=== PATIENT | male | born 1990 | race African-American/Black ===

== ENCOUNTER 2018-02-20 10:43 | Emergency (ER) | payer OTHER ==
[~2018-02-20] VITALS: Ht 175.3 cm; Wt 63.5 kg
--- NOTE | ~2018-02-20 | EKG ---
[facility] [place] [address] ELECTROCARDIOGRAM REPORT Name: YI FLORES Room #: [facility] FRANCISCO Nuñez#: [id number] Admission: 02/20/18 Attend Phys: Discharge: 02/20/18 Date of : [birth year] Report #: [id number] THIS REPORT FOR: //name// [facility] ED Test Date: 2018-02-20 Test Time: 11:37:27 Pat Name: YI FLORES Department: Room: Gender: Sorter Pricer: ZG : 1990 Requested By: Rubina Albert Order Number: [id number] MD: Preston Desir Measurements Intervals [place] Rate: 83 P: 41 [place]: 178 QRS: 0 QRSD: 82 T: 36 QT: 346 QTc: 407 Interpretive Statements Sinus rhythm RSR' in V1 or V2, probably normal variant ST elev, probable normal early repol pattern No previous ECG available for comparison Electronically Signed On 02-20-2018 17:02:39 CDT by Preston Desir [email or web address] <ELECTRONICALLY SIGNED> By: Preston Desir MD, [facility] 02/20/18 1702 1137 36 Preston Desir MD, FACC /EPI
[2018-02-20] MEDS ORDERED: KEPPRA 500 MG500 M1 PO (10:58)
[2018-02-20 11:21] LABS: URINE BILIRUBIN NEGATIVE (Negative); URINE BLOOD NEGATIVE (Negative); URINE CLARITY CLEAR; URINE COLOR YELLOW; URINE GLUCOSE-RANDOM* NEGATIVE (Negative); URINE KETONES NEGATIVE (Negative); URINE LEUKOCYTES-REFLEX NEGATIVE (Negative); URINE NITRITE-REFLEX NEGATIVE (Negative); URINE PROTEIN (DIPSTICK) NEGATIVE (Negative); URINE SPECIFIC GRAVITY <= 1.005 (1.005-1.035); URINE UROBILINOGEN 0.2 E.U./dl (0.2-1.0)
[2018-02-20 11:25] LABS: ANION GAP 10 mmol/L (7-16); BUN 7 mg/dL (7-18); CALCIUM 9.2 mg/dL (8.5-10.1); CHLORIDE 105 mmol/L (98-107); CO2 20 mmol/L (21-32); CREATININE 1.1 mg/dL (0.7-1.3); GLUCOSE 107 mg/dL (74-106); POTASSIUM 3.8 mmol/L (3.5-5.1); SODIUM 135 mmol/L (136-145)
[2018-02-20 11:29] LABS: ALBUMIN 3.7 g/dL (3.4-5.0); SALICYLATE < 2.8 mg/dL (2.8-20.0); SGOT 56 U/L (15-37); SGPT 39 U/L (30-65); TOTAL BILIRUBIN 0.8 mg/dL (<0.1-1.0); TOTAL PROTEIN 7.5 g/dL (6.4-8.2)
[2018-02-20 11:31] LABS: AMP/METHAMP Negative (Negative); BARBITURATES Negative (Negative); BENZODIAZEPINES Negative (Negative); COCAINE Negative (Negative); METHADONE Negative (Negative); OPIATES Negative (Negative); PCP Negative (Negative)
[2018-02-20 11:56] LABS: ABSOLUTE NEUTROPHILS 4.4 thou/uL (1.4-8.2); BASOPHILS 0.6 % (0.0-2.0); EOSINOPHILS 0.2 % (0.0-3.0); HEMATOCRIT 46.1 % (42.0-52.0); HEMOGLOBIN 15.9 gm/dL (14.0-18.0); LYMPHOCYTES 25.2 % (24.0-44.0); MCH 26.9 pg (26.0-34.0); MCHC 34.6 g/dL (28.0-37.0); MCV 77.7 fL (80.0-100.0); MONOCYTES 10.3 % (1.0-8.0); PLATELET COUNT 262 thou/uL (150-400); POLYS 63.7 % (36.0-66.0); RBC 5.93 mil/uL (4.50-6.00); RDW 14.6 % (10.5-14.5)
[2018-02-20 15:15] VITALS: BP 118/52
== END 2018-02-20 15:15 | disposition home or self-care (01) ==
LOC: ER 10:43
PROVIDERS: Physician Assistant
DX: F29 Unspecified psychosis not due to a substance or known physiological condition (principal); S00.511A Abrasion of lip, initial encounter; R41.82 Altered mental status, unspecified; F10.10 Alcohol abuse, uncomplicated; F12.99 Cannabis use, unspecified with unspecified cannabis-induced disorder; F17.210 Nicotine dependence, cigarettes, uncomplicated; Z88.8 Allergy status to other drugs, medicaments and biological substances; Y90.0 Blood alcohol level of less than 20 mg/100 ml; X58.XXXA Exposure to other specified factors, initial encounter; Y92.89 Other specified places as the place of occurrence of the external cause; Y93.89 Activity, other specified; Y99.8 Other external cause status

== ENCOUNTER 2019-04-16 03:32 | Emergency (ER) | payer OTHER ==
[~2019-04-16] VITALS: Ht 172.7 cm; Wt 72.6 kg
[~2019-04-16 03:32] MED LIST: KEPPRA 500 MG500 M1 PO
[2019-04-16 05:05] LABS: ABSOLUTE NEUTROPHILS 4.7 thou/uL (1.4-8.2); BASOPHILS 0.4 % (0.0-2.0); EOSINOPHILS 0.2 % (0.0-3.0); HEMATOCRIT 45.8 % (42.0-52.0); HEMOGLOBIN 15.5 gm/dL (14.0-18.0); LYMPHOCYTES 22.4 % (24.0-44.0); MCH 26.3 pg (26.0-34.0); MCHC 33.9 g/dL (28.0-37.0); MCV 77.5 fL (80.0-100.0); MONOCYTES 10.3 % (1.0-8.0); PLATELET COUNT 287 thou/uL (150-400); POLYS 66.7 % (36.0-66.0)
[2019-04-16 05:12] LABS: CALCIUM 8.9 mg/dL (8.5-10.1); POTASSIUM 3.4 mmol/L (3.5-5.1)
[2019-04-16 05:15] LABS: AMP/METHAMP Negative (Negative); BARBITURATES Negative (Negative); BENZODIAZEPINES Negative (Negative); COCAINE POSITIVE (Negative); METHADONE Negative (Negative); OPIATES Negative (Negative); PCP Negative (Negative)
[2019-04-16 05:55] VITALS: BP 143/110
== END 2019-04-16 06:19 | disposition home or self-care (01) ==
LOC: ER 03:32
PROVIDERS: Emergency Medicine
DX: F12.10 Cannabis abuse, uncomplicated (principal); F14.10 Cocaine abuse, uncomplicated; F91.9 Conduct disorder, unspecified; F17.210 Nicotine dependence, cigarettes, uncomplicated; Z88.8 Allergy status to other drugs, medicaments and biological substances

== ENCOUNTER 2019-05-28 07:57 | Emergency (ER) | payer OTHER ==
[~2019-05-28] VITALS: Ht 165.1 cm; Wt 74.8 kg
[2019-05-28 09:29] LABS: URINE BILIRUBIN NEGATIVE (Negative); URINE BLOOD TRACE (Negative); URINE CLARITY CLEAR; URINE COLOR YELLOW; URINE GLUCOSE-RANDOM* NEGATIVE (Negative); URINE KETONES NEGATIVE (Negative); URINE LEUKOCYTES-REFLEX NEGATIVE (Negative); URINE NITRITE-REFLEX NEGATIVE (Negative); URINE PROTEIN (DIPSTICK) TRACE (Negative)
[2019-05-28 09:37] LABS: AMP/METHAMP Negative (Negative); BARBITURATES Negative (Negative); BENZODIAZEPINES Negative (Negative); COCAINE Negative (Negative); METHADONE Negative (Negative); OPIATES Negative (Negative); PCP Negative (Negative)
[2019-05-28 10:56] VITALS: BP 152/85
== END 2019-05-28 10:57 | disposition home or self-care (01) ==
LOC: ER 07:57
PROVIDERS: Emergency Medicine
DX: G40.909 Epilepsy, unspecified, not intractable, without status epilepticus (principal); F12.90 Cannabis use, unspecified, uncomplicated; I10 Essential (primary) hypertension; F17.210 Nicotine dependence, cigarettes, uncomplicated; Z88.8 Allergy status to other drugs, medicaments and biological substances

== ENCOUNTER 2021-08-02 10:22 | Emergency (ER) | payer OTHER ==
[~2021-08-02] VITALS: Ht 175.3 cm; Wt 81.7 kg
--- NOTE | ~2021-08-02 | EMS ---
[place] [address] EMS Patient Care Report Name: YI FLORES Room #: [facility] FRANCISCO Nuñez#: [id number] Admission: 08/02/21 Attend Phys: Discharge: Date of : [birth year] Report #: [id number] THIS REPORT FOR: //name// Report Transmitted: 08/02/2021 12:21 EMS Care Summary [place], [place]/[facility] Incident [id number] @ 08/02/2021 09:51 Incident Location [facility] [address] [place] [address] Patient YI FLORES Male, 30 Years 1990 Patient Address [address] [place] [address] Patient History Hypertension (HTN),Seizures, Patient Allergies No known allergies, Patient Medications Doxycycline, Levetiracetam, Chief Complaint "Bugs crawling on my skin" Disposition Transported No Lights/[place] Dispatch Reason Sick Person Transported To [facility] Narrative Arrived on scene to find our patient seated on a couch in the living room of his home. Patient stated he had "felt like bugs are crawling on me" since sometime the night prior. Patient admitted to using marijuana, alcohol, and cocaine. Patient denied having used hallucinogens, methamphetamine, [place] [address] EMS Patient Care Report Name: YI FLORES Room #: [facility] FRANCISCO Nuñez#: [id number] Admission: 08/02/21 Attend Phys: Discharge: Date of : [birth year] Report #: [id number] Patient denied any soa, chest pain, vomiting or diarrhea. Patient stated he'd had 4 seizures with in the last 2 days, patient denied having a seizure today. Patient admitted to having visual hallucinations in addition to having the "bugs crawling on his skin." Patient was calm and cooperative upon our arrival and assisted in walking to the ambulance. Vital signs obtained and transport initiated. During transport a glucose was obtained. Patient hypoglycemic per protocol and IV access was established with D10 administered. 50cc of D10 had been administered upon arrival at receiving facility. Patient transferred to receiving facility without change in patient condition. Initial Vitals @10:05P: 105,R: 16,BP: 175/116,Pain: 0/10,GCS: 15,CO: 4,SpO2: 98,Revised Trauma: 12, @10:09P: 97,R: 16,BP: 187/91,Pain: 0/10,GCS: 15,Glucose: 55,CO: 3,SpO2: 99,Revised Trauma: 12, Assessments @10:00MENTAL:Hallucinations,Place Oriented,Event Oriented,Person Oriented,SKIN:HEENT:Head/Face: No Abnormalities,Eyes: No Abnormalities,Neck/Airway: No Abnormalities,LUNG SOUNDS:General: Nausea,Left Upper: No Abnormalities,Right Upper: No Abnormalities,Left Lower: No Abnormalities,Right Lower: No Abnormalities,ABDOMEN:General: Nausea,Left Upper: No Abnormalities,Right Upper: No Abnormalities,Left Lower: No Abnormalities,Right Lower: No Abnormalities,PELVIS//GI:No Abnormalities,EXTREMITIES:Left Arm: No Abnormalities,Right Arm: No Abnormalities,Left Leg: No Abnormalities,Right Leg: No Abnormalities,PULSE:NEURO:No Abnormalities, Impression Overdose - Hallucinogens Procedures @10:00 ALS Assessment Response: UnchangedSucceeded @10:13 IV Therapy - Saline Lock 10cc (20 ga) Site: Antecubital-Left Response: UnchangedSucceeded @10:13 Dextrose 10% - 50 Milliliters (ml) - Intravenous (IV) Response: Improved Timeline 09:49,Call Received 09:49,Dispatch Notified 09:51,Dispatched 09:53,En Route 10:00,On Scene 10:00,At Patient [address] [address] EMS Patient Care Report Name: YI FLORES Room #: [facility] FRANCISCO Nuñez#: [id number] Admission: 08/02/21 Attend Phys: Discharge: Date of : [birth year] Report #: [id number] 10:00,ALS Assessment,Response: UnchangedSucceeded, 10:05,BP: 175/116 M,PULSE: 105,RR: 16 R,SPO2: 98 Ox,ETCO2: ,BG: ,PAIN: 0,GCS: 15, 10:05,Depart Scene 10:09,BP: 187/91 M,PULSE: 97,RR: 16 R,SPO2: 99 Ox,ETCO2: ,B,PAIN: 0,GCS: 15, 10:13,IV Therapy - Saline Lock 10cc 20 ga Site: Antecubital-Left,Response: UnchangedSucceeded, 10:13,Dextrose 10% - 50 Milliliters (ml) - Intravenous (IV),Response: Improved 10:16,At Destination 10:33,Call Closed Disclaimer v1.1 Copyright 2021 [employer] This EMS Care Summary contains data elements from the applicable legal record (which may be displayed differently). It is designed to provide pertinent information for the following purposes: continuity of care, clinical quality, and state data reporting. The complete legal record is available to ED staff and administrators of the receiving hospital in [employer] Patient Tracker. All data is provided "as is."
[2021-08-02 10:24] VITALS: BP 161/107
[2021-08-02 11:15] LABS: HEMATOCRIT 50.4 % (42.0-52.0); HEMOGLOBIN 17.1 gm/dL (14.0-18.0); MCH 26.2 pg (26.0-34.0); MCHC 33.8 g/dL (28.0-37.0); MCV 77.5 fL (80.0-100.0); RDW 18.3 % (10.5-14.5); WBC 9.4 thou/uL (4.0-11.0)
[2021-08-02 11:19] LABS: ANION GAP 14 mmol/L (7-16); BUN 13 mg/dL (7-18); CALCIUM 9.5 mg/dL (8.5-10.1); CHLORIDE 100 mmol/L (98-107); CO2 23 mmol/L (21-32); CREATININE 0.8 mg/dL (0.7-1.3); GLUCOSE 134 mg/dL (74-106); POTASSIUM 5.6 mmol/L (3.5-5.1); SODIUM 137 mmol/L (136-145)
[2021-08-02 11:26] LABS: ALBUMIN 4.5 g/dL (3.4-5.0); SALICYLATE 3.1 mg/dL (2.8-20.0); SGOT 111 U/L (15-37); SGPT 115 U/L (16-63); TOTAL BILIRUBIN 0.7 mg/dL (0.2-1.0); TOTAL PROTEIN 9.1 g/dL (6.4-8.2)
[2021-08-02 11:43] LABS: URINE BILIRUBIN NEGATIVE (Negative); URINE BLOOD TRACE (Negative); URINE CLARITY CLEAR; URINE COLOR YELLOW; URINE GLUCOSE-RANDOM* NEGATIVE (Negative); URINE KETONES NEGATIVE (Negative); URINE LEUKOCYTES-REFLEX NEGATIVE (Negative); URINE NITRITE-REFLEX NEGATIVE (Negative); URINE PROTEIN (DIPSTICK) 2+ (Negative); URINE SPECIFIC GRAVITY >= 1.030 (1.005-1.035); URINE UROBILINOGEN 0.2 E.U./dl (0.2-1.0)
[2021-08-02 11:51] LABS: ABSOLUTE NEUTROPHILS 5.4 thou/uL (1.4-8.2); PLATELET COUNT 190 thou/uL (150-400); PLATELET ESTIMATE NORMAL
[2021-08-02 11:57] LABS: AMP/METHAMP Negative (Negative); BARBITURATES Negative (Negative); BENZODIAZEPINES Negative (Negative); COCAINE Negative (Negative); METHADONE Negative (Negative); OPIATES Negative (Negative); PCP Negative (Negative)
[2021-08-02 12:13] LABS: BACTERIA-REFLEX 1-9 Few /HPF (None Seen); CASTS None Seen /LPF (None Seen); CRYSTALS None Seen /LPF (None Seen); SQUAMOUS 0-3 Few /LPF (0-3); URINE RBC None Seen /HPF (NONE SEEN); URINE WBC-REFLEX 0-5 Rare /HPF (0-5)
--- NOTE | 2021-08-03 08:27 | EKG ---
[facility] [place] [address] ELECTROCARDIOGRAM REPORT Name: YI FLORES Room #: DEP FRANCISCO Nuñez#: [id number] Admission: 08/02/21 Attend Phys: Discharge: 08/02/21 Date of : [birth year] Report #: [id number] [facility] ED Test Date: 2021-08-02 Test Time: 13:22:50 Pat Name: YI FLORES Department: Room: Gender: M Miner Pick: romi george : 1990 Requested By: Javon Mullins Order Number: [id number] MD: Preston Desir Measurements Intervals [place] Rate: 81 P: 9 SD: 168 QRS: 5 QRSD: 86 T: 30 QT: 361 QTc: 419 Interpretive Statements Sinus rhythm RSR' in V1 or V2, probably normal variant ST elev, probable normal early repol pattern Compared to ECG 02/20/2018 11:37:27 No significant changes Electronically Signed On 08-03-2021 8:27:37 [employer] by Preston Desir [email or web address] <ELECTRONICALLY SIGNED> By: Preston Desir MD, [facility] 08/03/21 08 1322 Preston Desir MD, FACC /EPI
== END 2021-08-02 13:52 | disposition home or self-care (01) ==
LOC: ER 10:22
PROVIDERS: Emergency Medicine
DX: R20.2 Paresthesia of skin (principal); I10 Essential (primary) hypertension; F17.210 Nicotine dependence, cigarettes, uncomplicated; Z79.899 Other long term (current) drug therapy; Z88.8 Allergy status to other drugs, medicaments and biological substances